=== PATIENT | female | born 1970 | race Asian ===

== ENCOUNTER 2021-06-16 11:43 | Emergency (ER) | payer OTHER ==
[2021-06-16 11:57] VITALS: BP 126/80
--- NOTE | 2021-06-16 12:56 | ED Physician Documentation ---
History of Present Illness - Stated complaint Stated Complaint: SKIN RASH - Chief complaint Chief Complaint: Allergic Rx - History obtained from History obtained from: Patient, Family - History of Present Illness Timing: How many weeks ago (2) Pain level max: 0 Pain level now: 0 - Additonal information Additional information: Patient is a 50-year-old female who presents to the emergency department complaint of hives for the past 2 weeks. Nothing makes it better or worse. Complains of diffuse itching. Has a known allergy to dust. The itching started when she arrived from [place] 2 weeks ago. She will be spending the next several months here with her daughter. She is not on any medications at home. No past m edical history other than environmental allergies. Review of Systems Constitutional: denies: Fever, Chills GI: denies: Vomiting : denies: Now EGA Neurologic: denies: Headache PD PAST MEDICAL HISTORY - Past Medical History Past Medical History: No - Past Surgical History Past Surgical History: No - Present Medications Home Medications: Ambulatory Orders Medication Instructions Recorded Confirmed Cetirizine [ZyrTEC] 10 mg PO DAILY #30 tablet 06/16/21 predniSONE [Deltasone] 10 mg PO [id number] #42 tab 06/16/21 - Allergies Allergies/Adverse Reactions: Allergies Allergy/AdvReac Type Severity Reaction Status Date / Time No Known Drug Allergies Allergy Verified 06/16/21 11:52 PD ED PE NORMAL - Vitals Vital signs reviewed: Yes - General General: Alert and oriented X 3, No acute distress - HEENT HEENT: Ears normal, Moist mucous membranes - Neck Neck: Supple, no meningeal sign - Cardiac Cardiac: RRR - Respiratory Respiratory: No respiratory distress, Clear bilaterally - Abdomen Abdomen: Soft, Non tender, Non distended - Derm Derm: Warm and dry, Other (Diffuse urticaria.) - Extremities Extremities: Normal ROM s pain, No edema, No calf tenderness / cord - Neuro Neuro: Alert and oriented X 3 Results - Vitals Vitals: Vital Signs - 24 hr 06/16/21 11:52 Temperature 36.5 C Heart Rate 62 Respiratory 16 Rate Blood Pressure 126/80 O2 Saturation 99 Oxygen O2 Source Room air PD MEDICAL DECISION MAKING - ED course Complexity details: considered differential, d/w patient ED course: 50-year-old female with diffuse urticaria. Possible environmental allergies. We will have her follow-up with her doctor for further care. Patient is well- appearing, nontoxic. Afebrile. Will place on steroids and allergy medication. Patient and family counseled regarding signs and symptoms for which I believe and urgent re-evaluation would be necessary. Patient with good understanding of and agreement to plan and is comfortable going home at this time This document was made in part using voice recognition software. While efforts are made to proofread this document, sound alike and grammatical errors may occur. Departure - Departure Disposition: 01 Home, Self Care Clinical Impression: Urticaria Condition: Good Instructions: ED Urticaria Follow-Up: [facility] [Provider Group] [facility] [Provider Group] [facility] [Provider Group] [facility] [Provider Group] Prescriptions: predniSONE [Deltasone] 10 mg PO [id number] #42 tab Cetirizine [ZyrTEC] 10 mg PO DAILY #30 tablet Comments: Your prescriptions were sent to the [facility] pharmacy. Use the medications as prescribed. Follow-up with your doctor as needed for further care. You likely have an environmental allergy causing the hives.
== END 2021-06-16 13:08 | disposition home or self-care (01) ==
LOC: ED 11:43
DX: L50.9 Urticaria, unspecified (principal); Z91.048 Other nonmedicinal substance allergy status
CPT/HCPCS: 99282; 99283

== ENCOUNTER 2021-07-20 10:24 | Emergency (ER) | payer OTHER ==
[2021-07-20 10:31] VITALS: BP 121/75
--- NOTE | 2021-07-20 10:45 | ED Physician Documentation ---
PD HPI SKIN - Stated complaint Stated Complaint: SKIN RASH - Chief complaint Chief Complaint: Wound - History obtained from History obtained from: Patient, Family - History of Present Illness Timing - onset: How many days ago (4) Timing - duration: Days (4) Timing - details: Gradual onset, Still present Location: [place] Quality / character: Itchy, Raised, Swelling. No: Vesicular, Crusted, Draining Improved by: Oral steroids Associated symptoms: No: Fever, Myalgias, Joint pain, Headache, Facial swelling, Dyspnea, Abd pain, N/V/D, Urinary sx Contributing factors: Unknown Similar symptoms before: Diagnosis (urticaria) Recently seen: Emergency Dept - Additional information Additional information: 51-year-old female who is visiting her daughter here from [place] has developed urticaria. She was seen in the emergency department 1 month ago and she was given a course of prednisone about 10 days worth and Zyrtec. She states that when she took the prednisone symptoms went away completely and when she was on the Zyrtec she had a little bit of itching. She has now run out of the Zyrtec and the rash has reappeared. History is taken through the daughter who is an excellent header setup operator and the patient denies any current illness. She thinks that she is may be eating more seafood than she had previously but she thinks that the only difference between what she does in [place] and here other than the environment. She has had a prior allergy to dust. She does not have any difficulty breathing. Review of Systems Constitutional: denies: Fever Eyes: denies: Decreased vision Ears: denies: Ear pain Nose: denies: Congestion Throat: denies: Sore throat Respiratory: denies: Dyspnea, Cough GI: denies: Abdominal Pain, Nausea, Vomiting, Diarrhea Skin: reports: Rash Musculoskeletal: denies: Neck pain, Back pain, Extremity pain PD PAST MEDICAL HISTORY - Past Medical History Past Medical History: No - Past Surgical History Past Surgical History: No - Present Medications Home Medications: Ambulatory Orders Medication Instructions Recorded Confirmed Cetirizine HCl [Zyrtec] 10 mg PO DAILY #30 tablet 07/20/21 predniSONE [Deltasone] 40 mg PO DAILY 5 Days #10 tablet 07/20/21 - Allergies Allergies/Adverse Reactions: Allergies Allergy/AdvReac Type Severity Reaction Status Date / Time No Known Drug Allergies Allergy Verified 07/20/21 10:31 - Social History Does the pt smoke?: No Smoking Status: Never smoker - POLST Patient has POLST: No PD ED PE NORMAL - Vitals Vital signs reviewed: Yes (normal ) - General General: No acute distress, Well developed/nourished - HEENT HEENT: Atraumatic, PERRL, EOMI - Neck Neck: Supple, no meningeal sign, No bony TTP - Cardiac Cardiac: RRR, No murmur - Respiratory Respiratory: No respiratory distress, Clear bilaterally - Abdomen Abdomen: Normal bowel sounds, Soft, Non tender, Non distended, No organomegaly - Back Back: No CVA TTP, No spinal TTP - Derm Derm: Normal color, Warm and dry, Other (Urticaria are present over the palms of the hands and over the back. 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 We will provide a short course of prednisone and encouraged her to continue use of Zyrtec and follow-up with allergy and immunology. Departure - Departure Disposition: 01 Home, Self Care Clinical Impression: Urticaria Instructions: ED Urticaria Follow-Up: Bobo Cullen MD [Physician No Access] - JOSE M BRITTON MD [Physician No Access] - Prescriptions: predniSONE [Deltasone] 40 mg PO DAILY 5 Days #10 tablet Cetirizine HCl [Zyrtec] 10 mg PO DAILY #30 tablet Comments: Tyron, today it looks like your hives have recurred. The mainstay of treatment with this will be the Zyrtec which you are encouraged to take daily. If you have additional itching on top of this, take Benadryl. The expectation is that your rash will improve dramatically with the prednisone and stay away while you are taking the Zyrtec. A follow-up with allergy and immunology is indicated and I have given you telephone numbers to consider for follow-up. Your medications have been e-scribed to the community pharmacy here in [place].
== END 2021-07-20 10:55 | disposition home or self-care (01) ==
LOC: ED 10:24
DX: L50.9 Urticaria, unspecified (principal); Z91.048 Other nonmedicinal substance allergy status
CPT/HCPCS: 99282